=== PATIENT | female | born 1995 | race Caucasian/White ===

== ENCOUNTER 2018-06-05 09:00 | Day surgery (SDC) | END 2018-06-09 09:09 | disposition home or self-care (01) ==

== ENCOUNTER 2018-07-30 08:28 | Day surgery (SDC) | payer BC ==
[~2018-07-30] VITALS: Ht 147.3 cm; Wt 46.0 kg
[2018-07-30] VITALS (12 sets, daily range): BP systolic 92–112; BP diastolic 44–72; PULSE 82–95; RESP 16–29; Ht 147.3 cm; Wt 46.0 kg
--- NOTE | 2018-07-30 08:27 | SIPON ---
Date/Time of Note Date/Time of Note DATE: 07/30/18 TIME: 08:26 Operative Report Preoperative Diagnosis left nasal foreign body Postoperative Diagnosis same Operation/Procedure Performed endoscopic removal left nasal foreign body Surgeon see signature line research assistant member na Anesthesia: general Estimated blood loss: 10 - 50 ml's Transfusion Required none Specimen nasal FB Grafts/Implants none Complications none RAMIRO HOWARD MD Jul 30, 2018 08:27
[~2018-07-30 08:28] MED LIST: DEXAMETHASONE 4 MG/ML 5 ML INJ ONE
--- NOTE | 2018-07-30 09:30 | HPN ---
Date/Time of Note Date/Time of Note DATE: 07/30/18 TIME: 09:30 Interval H&P Admission Note Pt. seen H&P reviewed: No system changes RAMIRO HOWARD MD Jul 30, 2018 09:30
[2018-07-30] MEDS ORDERED: ONDANSETRON 4 MG INJ ONE (10:10)
[2018-07-30] MEDS ORDERED: FENTAnyl 50 MCG/ML VIAL ONE (10:10)
[2018-07-30] MEDS ORDERED: MIDAZOLAM 1 MG/ML 2 ML INJ ONE (10:11)
[2018-07-30] MEDS ORDERED: LIDOCAINE 2% (SDV) 5 ML INJ ONE (10:43)
[2018-07-30] MEDS ORDERED: PROPOFOL 20 ML ONE (10:43)
[2018-07-30] MEDS ORDERED: SUCCINYLCHOLINE CHLORIDE 100 MG/5 ML SYG IV ONE (10:44)
[2018-07-30] MEDS ORDERED: LIDOCAINE 1%/EPI (1:100,000) (MDV) 20 ML ONE (10:48)
[2018-07-30] MEDS ORDERED: OXYMETAZOLINE 0.05% 15 ML NAS SPRAY NASAL ONE ×2 (10:48→10:54)
--- NOTE | 2018-07-30 10:49 | PREAC ---
Date/Time of Note Date/Time of Note DATE: 07/30/18 TIME: 10:48 Anesthesia Eval and Record Evaluation Time Pre-Procedure Interview DATE: 07/30/18 TIME: 10:48 Age 23 Sex female NPO: 8 hrs Preoperative diagnosis chronic sinusitis Planned procedure endoscopic sinus surgery Past Medical History Past Medical History: Includes Pulm: Sleep Apnea Surgery & Anesthesia Issues No known issue Meds Anticoagulation: No Beta Harshad within 24 hr: No Reason Beta Harshad not given: Pt. not on B-Harshad No Active Prescriptions or Reported Meds Meds reviewed: Yes Allergies Coded Allergies: No Known Allergy (Unverified , 07/30/18) Allergies Reviewed: Yes Labs/Studies Labs Reviewed: Reviewed by anesthesiologist test: Negative Pre-procedure Exam Last vitals Vital Signs Date Temp Pulse Resp B/P (MAP) Pulse Ox O2 O2 Flow FiO2 Time Delivery Rate 07/30/18 98.4 89 16 100/62 100 10:38 (75) Airway: Adequate mouth opening, Adequate thyromental dist Mallampati: Mallampati II Teeth: Normal Lung: Normal Heart: Normal ASA Physical Status ASA physical status: 2 Emergency: None Planned Anesthetic General/MAC: ETT Planned Pain Management Parenteral pain med Pre-operative Attestations Prior to commencing anesthesia and surgery, the patient was re-evaluated, there was verification of: *The patient's identity *The results of appropriate recent lab work and preoperative vital signs *The above evaluation not changing prior to induction *Anesthetic plan, risk benefits, alternative and complications discussed with patient/family; questions answered; patient/family understands, accepts and wishes to proceed. BÁRBARA BARNETT MD Jul 30, 2018 10:49
[2018-07-30] MEDS ORDERED: MEPERIDINE 25 MG INJ IV PRN (11:00)
[2018-07-30] MEDS ORDERED: HYDROmorphONE 1 MG/5 ML IV SYRINGE IV PRN ×2 (11:00)
[2018-07-30] MEDS ORDERED: DIPHENHYDRAMINE 50 MG INJ IV PRN (11:00)
[2018-07-30] MEDS ORDERED: ONDANSETRON 4 MG INJ IV PRN (11:00)
[2018-07-30] MEDS ORDERED: FENTAnyl 50 MCG/ML VIAL IV PRN ×2 (11:00)
[2018-07-30] MEDS ORDERED: LEVALBUTEROL (NEB) 1.25 MG/0.5 ML AMP HHN PRN (11:00)
--- NOTE | 2018-07-30 13:06 | NUR ---
DISCHARGE HOME. DENIES ANY PAIN. NO S/S OF BLEEDING. STABLE VIA WHEELCHAIR. ACCOMPANIED BY PT'S PARENTS.
--- NOTE | 2018-07-30 17:10 | OPR ---
DATE OF OPERATION: PREOPERATIVE DIAGNOSIS: Left nasal cavity foreign body. POSTOPERATIVE DIAGNOSIS: Left nasal cavity foreign body. PROCEDURE: Endoscopic removal of left nasal cavity foreign body with removal of polypoid tissue from the nasal cavity. SURGEON: Joey Amato MD ANESTHESIA: General anesthesia. COMPLICATIONS: None. BLOOD LOSS: Less than 30 mL. DESCRIPTION OF PROCEDURE: After informed consent was obtained, patient was brought to operating room and placed in supine position. General anesthesia was then induced. Nose injected with 1% lidocain e 1:100,000 epinephrine, approximately 4 mL were used. Nose was packed with Afrin soaked nasal gauze . After sufficient period of time had elapsed, patient was prepped and draped in standard fashion. A 0-degree nasal scope was introduced into the left nasal cavity. ____ was able to find the foreign body and it was quite wedged in posteriorly. We were able to use a shaver to reduce its size and as it was reduced it began to fracture then I was able to start to remove pieces of it. I worked in a f ashion slowly shaving, fracturing and removing all the pieces. At a certain point, I was able to com pletely remove the foreign body. There was some polypoid tissue that I was able to shave as well. A t this point, the nasal cavity was clear. There was minimal oozing. I did a bilateral nasal endosco py and the middle meatus was normal on both sides and this ____ was sat inferior to the ethmoid bulla at the level of the inferior turbinate. I was able to irrigate out the nasal cavity and other than the mild oozing and irritation from where the foreign body was, it was essentially a normal exam. patient was then awakened and transferred to recovery room in stable condition. Dictated By: JOEY CAMARENA/BALDEMAR Conf#: [id number] DID#: [id number]
--- NOTE | 2018-08-25 13:48 | HP ---
DATE OF ADMISSION: 07/30/2018 HISTORY OF PRESENT ILLNESS: Corrie Crawford is a 23-year-old female with a foul smell coming from t he left side of her nose. Endoscopy revealed a foreign body which I am unable to remove in the offic e. We are bringing her into the operating room today for operative removal under anesthesia. PAST MEDICAL HISTORY: Negative for any heart, lung, kidney failure, liver disease. PAST SURGICAL HISTORY: None. ALLERGIES: No known drug allergies. MEDICATIONS: List was reviewed. SOCIAL HISTORY: Negative for tobacco, alcohol or drug abuse. FAMILY HISTORY: Negative for any heart, lung, kidney failure, liver disease. REVIEW OF SYSTEMS: A 12-point review of systems otherwise noncontributory. PHYSICAL EXAMINATION: HEENT: On examination today, endoscopy through the left nasal cavity shows a foreign body posteriorl y wedged into the nasal cavity. There is no evidence of any other infection, mass or lesion. Oral c avity and oropharynx showed tongue and mouth are normal. Oropharynx without any evidence of infectio n. NECK: Reveals no lymphadenopathy or thyromegaly. Trachea is midline. The parotids and submandibula r glands are without lesion. CHEST: Clear to auscultation. HEART: Rate and rhythm are regular. IMPRESSION: Foreign body, left nasal cavity. PLAN: We will plan on removing under anesthesia in the operating room. Dictated By: RAMIRO CAMARENA/BALDEMAR Conf#: [id number] DID#: [id number]
== END 2018-07-30 13:06 | disposition home or self-care (01) ==
LOC: SDS 08:28
PROVIDERS: ATTEND Otolaryngology
DX: T17.1XXA Foreign body in nostril, initial encounter (principal); X58.XXXA Exposure to other specified factors, initial encounter
CPT/HCPCS: 31237; 84703; 88304; 88311; J2250; J2405; J3010; Z7512; Z7610; J1100